=== PATIENT | female | born 1980 | race Caucasian/White ===

== ENCOUNTER 2016-03-23 11:26 | Emergency (ER) | payer SELFPAY ==
[2016-03-23 11:44] VITALS: BP 118/74
[2016-03-23] MEDS ORDERED: ONDANSETRON HCL 8 MG TABLET PO ONE (11:53)
--- NOTE | 2016-03-23 11:53 | ER Document Report ---
ED Medical Screen (RME) - General Chief Complaint: Nausea/Vomiting Stated Complaint: NAUSEA,VOMITING Notes: 35 yo female c/o n/v/d x 2 days. not tolerating any PO. + periumbilical pain. no fever. no urinary symptoms. no significant PMHx. TRAVEL OUTSIDE OF THE [place] IN LAST 30 DAYS: No - Related Data Allergies/Adverse Reactions: No Known Allergies Allergy (Verified 03/23/16 11:40) Past Medical History - Social History Chew tobacco use (# tins/day): No Frequency of alcohol use: None Drug Abuse: None Pulmonary Medical History: Denies: Hx Tuberculosis GI Medical History: Reports: Hx Irritable Bowel - due to Rx meds Psychiatric Medical History: Reports: Hx Anxiety, Hx Depression Past Surgical History: Reports: Hx Abdominal Surgery - abd biopsy. Denies: Hx Pacemaker - Immunizations Hx Diphtheria, Pertussis, Tetanus Vaccination: No - unknown Physical Exam - Vital signs Vitals: Temp Pulse Resp BP Pulse Ox 97.6 F 77 20 118/74 100 03/23/16 11:42 03/23/16 11:42 03/23/16 11:42 03/23/16 11:42 03/23/16 11:42 Course - Vital Signs Vital signs: Temp Pulse Resp BP Pulse Ox 97.6 F 77 20 118/74 100 03/23/16 11:42 03/23/16 11:42 03/23/16 11:42 03/23/16 11:42 03/23/16 11:42
[2016-03-23] MEDS ORDERED: NORMAL SALINE 1000 ML 2,000 ML IV PRN (11:54)
[2016-03-23 12:33] LABS: HEMATOCRIT 42.9 % (36.0-47.0); HEMOGLOBIN 14.6 g/dL (12.0-15.5); HGB HCT DIFFERENCE 0.9; MEAN CORPUSCULAR HEMOGLOBIN 29.2 pg (27.0-33.4); MEAN CORPUSCULAR VOLUME 86 fl (80-97); RED BLOOD COUNT 4.98 10^6/uL (3.72-5.28); RED CELL DISTRIBUTION WIDTH 13.3 % (11.5-14.0); WHITE BLOOD COUNT 16.9 10^3/uL (4.0-10.5)
[2016-03-23 12:48] LABS: ALANINE AMINOTRANSFERASE 33 U/L (9-52); ALBUMIN 4.5 g/dL (3.5-5.0); ALKALINE PHOSPHATASE 68 U/L (38-126); ANION GAP 13 (5-19); ASPARTATE AMINO TRANSFERASE 24 U/L (14-36); BILIRUBIN,TOTAL 0.9 mg/dL (0.2-1.3); BLOOD UREA NITROGEN 19 mg/dL (7-20); CALCIUM 9.2 mg/dL (8.4-10.2); CARBON DIOXIDE 22 mmol/L (22-30); CHLORIDE 107 mmol/L (98-107); CREATININE RESULT 0.63 mg/dL (0.52-1.25); GLUCOSE 139 mg/dL (75-110); LIPASE 21.4 U/L (23-300); SODIUM 141.7 mmol/L (137-145); TOTAL PROTEIN 7.1 g/dL (6.3-8.2)
[2016-03-23 12:58] LABS: BASOPHILS % (MANUAL) 0 % (0-2); EOSINOPHILS % (MANUAL) 0 % (0-6); LYMPHOCYTES % (MANUAL) 4 % (13-45); TOTAL CELLS COUNTED 100
[2016-03-23 13:00] LABS: ANISOCYTOSIS SLIGHT
== END 2016-03-23 13:30 | disposition left against medical advice (07) ==
LOC: ER 11:26
DX: R11.2 Nausea with vomiting, unspecified (principal); R10.33 Periumbilical pain; Z53.21 Procedure and treatment not carried out due to patient leaving prior to being seen by health care provider
CPT/HCPCS: 36415; 83690; 85025; 80053; S0119